=== PATIENT | male | born 1940 | race Caucasian/White ===

== ENCOUNTER 2020-08-13 16:10 | Inpatient (IN) ==
[2020-08-13] MEDS ORDERED: ONDANSETRON 4 MG/2 ML VIAL IV PRN (22:00)
[2020-08-13 22:35] LABS: Basophils # 0.1 10*3/uL (0.0-0.2); Basophils % 0.9 % (0.0-0.8); Eosinophils # 0.2 10*3/uL (0.0-0.87); Eosinophils % 3.4 % (0.00-10.9); Hematocrit 27.5 VOL% (42.0-52.0); Hemoglobin 8.4 GM/DL (14.0-18.0); Immature Granulocytes % 0.4 %; Immature Granulocytes Absolute 0.03 #; Lymphocytes # 1.1 10*3/uL (1.4-4.0); Lymphocytes % 16.2 % (21.2-54.2); Mean Corpuscular HGB Conc 30.5 GM/DL (32-36); Mean Corpuscular Volume 109.1 FL (87-102); Mean Platelet Volume 12.5 FL (9.6-12.0); Monocytes % 10.5 % (1.7-12.7); NRBC # 0.02 10*3/uL; Neutrophils % 68.6 % (38.7-73.9); Platelet Count 186 T/CUMM (130-400); Red Blood Count 2.52 MC/CUMM (3.8-5.5); Red Cell Distribution Width 17.9 % (9.3-17.3); White Blood Count 6.8 T/CUMM (4-12)
[2020-08-13 22:45] LABS: Calcium 8.6 MG/DL (8.5-10.1); Osmolality,Calculated 279.4 MOS/KG (273-304)
[2020-08-13] MEDS: MIRTAZAPINE 15 MG TABLET PO SCH (23:20)
[2020-08-14 03:55] LABS: Band Neutrophils 3 % (0-10); Eosinophils 2 % (0-10); Lymphocytes 12 % (20-55); Platelet Estimate Normal; Segmented Neutrophils 72 % (50-85); Total Cells Counted 100
[2020-08-14 06:06] LABS: Basophils # 0.1 10*3/uL (0.0-0.2); Basophils % 0.7 % (0.0-0.8); Eosinophils # 0.3 10*3/uL (0.0-0.87); Eosinophils % 4.5 % (0.00-10.9); Hematocrit 29.2 VOL% (42.0-52.0); Hemoglobin 8.8 GM/DL (14.0-18.0); Immature Granulocytes % 0.8 %; Immature Granulocytes Absolute 0.06 #; Lymphocytes # 1.1 10*3/uL (1.4-4.0); Lymphocytes % 15.8 % (21.2-54.2); Mean Corpuscular HGB Conc 30.1 GM/DL (32-36); Mean Corpuscular Volume 109.4 FL (87-102); Mean Platelet Volume 13.8 FL (9.6-12.0); NRBC # 0.02 10*3/uL; Neutrophils % 68.2 % (38.7-73.9); Platelet Count 192 T/CUMM (130-400); Red Blood Count 2.67 MC/CUMM (3.8-5.5); Red Cell Distribution Width 18.1 % (9.3-17.3); White Blood Count 7.1 T/CUMM (4-12)
[2020-08-14 06:18] LABS: Elliptocytes Few; Hypochromasia 1+; Microcytosis Slight; Platelet Estimate Adequate
[2020-08-14 06:26] LABS: Folate 19.8 NG/ML (5.4-24.0); Vitamin B12 773 PG/ML (211-911)
[2020-08-14 07:04] LABS: Sedimentation Rate-Westergren 73 MM/HR (0-20)
[2020-08-14] MEDS ORDERED: ENOXAPARIN 40 MG/0.4 ML SYRINGE ONE (07:41)
[2020-08-14] MEDS: FUROSEMIDE 40 MG/4 ML VIAL IV SCH ×2 (08:36→14:59)
[2020-08-14] MEDS: METOPROLOL TARTRATE 50 MG TABLET PO SCH (08:36)
[2020-08-14] MEDS: ASPIRIN EC 81 MG TABLET PO SCH (08:36)
[2020-08-14] MEDS: CYANOCOBALAMIN 500 MCG TABLET PO SCH (08:36)
[2020-08-14] MEDS: ENOXAPARIN 40 MG/0.4 ML SYRINGE SUBCUT SCH (08:36)
[2020-08-14] MEDS: PANTOPRAZOLE 40 MG TABLET PO SCH (08:36)
[2020-08-14] MEDS: OMEGA 3 ACID ETHYL ESTERS 1 GM CAPSULE PO SCH (08:36)
[2020-08-14] MEDS: POTASSIUM CHLORIDE 20 MEQ TABLET PO SCH (08:36)
[2020-08-14] MEDS: NEOMYC/POLYMYX/DEXAMETH OPH SUSP 5 ML BOTTLE BOTH EYES SCH ×3 (09:43→21:07)
[2020-08-14] MEDS ORDERED: SODIUM CHLORIDE 0.65% NASAL SPRAY 45 ML BOTTLE BOTH NARES PRN (10:21)
[2020-08-14 11:34] LABS: Hemoglobin A1 (Alkaline) 98.2 % (96.5-98.5); Hemoglobin A2 (Alkaline) 1.8 % (1.5-3.5)
[2020-08-14] MEDS: MIRTAZAPINE 15 MG TABLET PO SCH (21:07)
[2020-08-14] MEDS: ACYCLOVIR 200 MG CAPSULE PO SCH (21:07)
[2020-08-15 06:10] LABS: Risk Ratio 3.73; VLDL CHOLESTEROL 13.6 MG/DL
[2020-08-15] MEDS: PANTOPRAZOLE 40 MG TABLET PO SCH (08:36)
[2020-08-15] MEDS: ASPIRIN EC 81 MG TABLET PO SCH (08:36)
[2020-08-15] MEDS: POTASSIUM CHLORIDE 20 MEQ TABLET PO SCH (08:36)
[2020-08-15] MEDS: METOPROLOL TARTRATE 50 MG TABLET PO SCH (08:36)
[2020-08-15] MEDS: CYANOCOBALAMIN 500 MCG TABLET PO SCH (08:36)
[2020-08-15] MEDS: MULTIVITAMIN (CENTRUM) TABLET PO SCH (08:36)
[2020-08-15] MEDS: OMEGA 3 ACID ETHYL ESTERS 1 GM CAPSULE PO SCH (08:36)
[2020-08-15] MEDS: ENOXAPARIN 40 MG/0.4 ML SYRINGE SUBCUT SCH (08:36)
[2020-08-15] MEDS: FUROSEMIDE 40 MG/4 ML VIAL IV SCH ×2 (08:37→15:54)
[2020-08-15] MEDS: NEOMYC/POLYMYX/DEXAMETH OPH SUSP 5 ML BOTTLE BOTH EYES SCH ×3 (09:01→21:42)
[2020-08-15] MEDS: MIRTAZAPINE 15 MG TABLET PO SCH (21:42)
[2020-08-15] MEDS: ACYCLOVIR 200 MG CAPSULE PO SCH (21:42)
[2020-08-16 06:00] LABS: Basophils # 0.1 10*3/uL (0.0-0.2); Basophils % 0.8 % (0.0-0.8); Eosinophils # 0.4 10*3/uL (0.0-0.87); Eosinophils % 4.9 % (0.00-10.9); Hematocrit 28.2 VOL% (42.0-52.0); Hemoglobin 8.6 GM/DL (14.0-18.0); Immature Granulocytes % 0.8 %; Immature Granulocytes Absolute 0.06 #; Lymphocytes # 1.1 10*3/uL (1.4-4.0); Lymphocytes % 14.2 % (21.2-54.2); Mean Corpuscular HGB Conc 30.5 GM/DL (32-36); Mean Corpuscular Volume 108.9 FL (87-102); Monocytes % 9.7 % (1.7-12.7); Neutrophils % 69.6 % (38.7-73.9); Platelet Count 194 T/CUMM (130-400); Red Blood Count 2.59 MC/CUMM (3.8-5.5); Red Cell Distribution Width 17.6 % (9.3-17.3); White Blood Count 7.5 T/CUMM (4-12)
[2020-08-16 06:15] LABS: Calcium 8.7 MG/DL (8.5-10.1); Osmolality,Calculated 274.7 MOS/KG (273-304)
[2020-08-16 06:33] LABS: Anisocytosis 2+; Ovalocytes Few; Platelet Estimate Normal; Poikilocytosis Slight; Tear Drop Cells Few
[2020-08-16 06:34] LABS: Hypochromasia Slight; Macrocytosis 1+
[2020-08-16] MEDS ORDERED: lisinopriL 5 MG TABLET PO SCH (09:00)
[2020-08-16] MEDS: METOPROLOL TARTRATE 50 MG TABLET PO SCH (09:41)
[2020-08-16] MEDS: ASPIRIN EC 81 MG TABLET PO SCH (09:41)
[2020-08-16] MEDS: OMEGA 3 ACID ETHYL ESTERS 1 GM CAPSULE PO SCH (09:41)
[2020-08-16] MEDS: POTASSIUM CHLORIDE 20 MEQ TABLET PO SCH (09:41)
[2020-08-16] MEDS: CYANOCOBALAMIN 500 MCG TABLET PO SCH (09:41)
[2020-08-16] MEDS: ENOXAPARIN 40 MG/0.4 ML SYRINGE SUBCUT SCH (09:41)
[2020-08-16] MEDS: MULTIVITAMIN (CENTRUM) TABLET PO SCH (09:41)
[2020-08-16] MEDS: FUROSEMIDE 40 MG/4 ML VIAL IV SCH (09:42)
[2020-08-16] MEDS: NEOMYC/POLYMYX/DEXAMETH OPH SUSP 5 ML BOTTLE BOTH EYES SCH (09:46)
[2020-08-16] MEDS: PANTOPRAZOLE 40 MG TABLET PO SCH (09:46)
[2020-08-16 12:53] VITALS: BP 124/65
== END 2020-08-16 13:42 | disposition home or self-care (01) | DRG 292 ==
LOC: N.MMA 16:10 → N.TELES 17:37 → SUATTDRO 17:37
PROVIDERS: ADMIT Internal Medicine; ATTEND Emergency Medicine